=== PATIENT | female | born 1955 | race Caucasian/White ===

== ENCOUNTER → 2018-12-01 | Outpatient (CLI) | payer OTHER ==
[~2018-12-01] MED LIST: AMLODIPINE BESY10 MG PO; ASPIRIN; AVAPRO300 MG PO; COZAAR 50 MG TA50 M1; CRESTOR10 MG PO; DYAZIDE; EFFIENT10 MG PO; GLYBURID-METFO1 EAC3 PO; JANUVIA100 MG PO; LOPRESSOR; PRILOSEC40 MG PO; SIMVASTATIN; TRAMADOL PO; TRIAMTERENE W/1 EACH PO; ZOCOR80 MG PO
== END ==
LOC: HYPER 07:00
DX: I89.0 Lymphedema, not elsewhere classified (principal); I25.10 Atherosclerotic heart disease of native coronary artery without angina pectoris; E11.22 Type 2 diabetes mellitus with diabetic chronic kidney disease; I12.9 Hypertensive chronic kidney disease with stage 1 through stage 4 chronic kidney disease, or unspecified chronic kidney disease; N18.9 Chronic kidney disease, unspecified; I87.2 Venous insufficiency (chronic) (peripheral); E78.00 Pure hypercholesterolemia, unspecified; E66.01 Morbid (severe) obesity due to excess calories; R60.1 Generalized edema; R06.09 Other forms of dyspnea; F41.9 Anxiety disorder, unspecified; Z95.1 Presence of aortocoronary bypass graft; Z68.43 Body mass index [BMI] 50.0-59.9, adult

== ENCOUNTER → 2019-05-18 | Outpatient (CLI) | payer OTHER | LOC: HYPER 06:57 | DX: I89.0 Lymphedema, not elsewhere classified (principal); I87.2 Venous insufficiency (chronic) (peripheral); I12.9 Hypertensive chronic kidney disease with stage 1 through stage 4 chronic kidney disease, or unspecified chronic kidney disease; N18.9 Chronic kidney disease, unspecified; R60.1 Generalized edema; E78.00 Pure hypercholesterolemia, unspecified; I25.10 Atherosclerotic heart disease of native coronary artery without angina pectoris; E66.9 Obesity, unspecified; R06.09 Other forms of dyspnea; F41.9 Anxiety disorder, unspecified; Z68.43 Body mass index [BMI] 50.0-59.9, adult; Z95.1 Presence of aortocoronary bypass graft ==

== ENCOUNTER → 2019-07-13 | Outpatient (CLI) | payer OTHER | LOC: HYPER | DX: I89.0 Lymphedema, not elsewhere classified (principal); E11.22 Type 2 diabetes mellitus with diabetic chronic kidney disease; I12.9 Hypertensive chronic kidney disease with stage 1 through stage 4 chronic kidney disease, or unspecified chronic kidney disease; N18.9 Chronic kidney disease, unspecified; I87.2 Venous insufficiency (chronic) (peripheral); I25.10 Atherosclerotic heart disease of native coronary artery without angina pectoris; R60.1 Generalized edema; E78.00 Pure hypercholesterolemia, unspecified; E66.01 Morbid (severe) obesity due to excess calories; R06.09 Other forms of dyspnea; F41.9 Anxiety disorder, unspecified; Z68.43 Body mass index [BMI] 50.0-59.9, adult; Z95.1 Presence of aortocoronary bypass graft ==

== ENCOUNTER 2019-11-19 16:51 | Inpatient (IN) | payer OTHER ==
[~2019-11-19] VITALS: Ht 172.7 cm; Wt 164.2 kg
[2019-11-19 16:59] VITALS: BP 150/66
[2019-11-19 18:19] LABS: ABSOLUTE NEUTROPHILS 6.5 thou/uL (1.4-8.2); BASOPHILS 0.6 % (0.0-2.0); EOSINOPHILS 1.8 % (0.0-3.0); HEMATOCRIT 34.3 % (37.0-47.0); HEMOGLOBIN 11.3 gm/dL (12.0-15.0); MCH 31.7 pg (26.0-34.0); MCV 96.1 fL (80.0-100.0); MONOCYTES 9.4 % (1.0-8.0); PLATELET COUNT 180 thou/uL (150-400); POLYS 72.2 % (36.0-66.0); RBC 3.57 mil/uL (4.20-5.00); RDW 13.6 % (10.5-14.5)
[2019-11-19 18:24] LABS: ANION GAP 9 mmol/L (7-16); BUN 34 mg/dL (7-18); CALCIUM 9.9 mg/dL (8.5-10.1); CHLORIDE 99 mmol/L (98-107); CO2 28 mmol/L (21-32); CREATININE 1.8 mg/dL (0.6-1.0); GLUCOSE 127 mg/dL (74-106); POTASSIUM 3.8 mmol/L (3.5-5.1); SODIUM 136 mmol/L (136-145)
[2019-11-19 18:37] LABS: ALBUMIN 2.7 g/dL (3.4-5.0); DIRECT BILIRUBIN < 0.1 mg/dL (<0.1-0.2); SGOT 30 U/L (15-37); SGPT 25 U/L (30-65); TOTAL BILIRUBIN 0.4 mg/dL (<0.1-1.0); TOTAL PROTEIN 7.3 g/dL (6.4-8.2)
[2019-11-19 20:47] VITALS: BP 113/53
[2019-11-19 21:13] VITALS: BP 137/49
[2019-11-19 21:48] VITALS: BP 151/54
[2019-11-19] MEDS ORDERED: NEURONTIN300 MG PO (23:12)
[2019-11-19] MEDS ORDERED: CARVEDILOL12.5 MG PO (23:13)
[2019-11-20] MEDS ORDERED: DEMADEX20 MG PO (00:08)
[2019-11-20] MEDS ORDERED: OMEPRAZOLE 20 M20 M1 PO (00:08)
[2019-11-20] MEDS ORDERED: KLOR-CON 10 ER10 MEQ PO (00:09)
[2019-11-20] MEDS ORDERED: ROSUVASTATIN CA10 MG PO (00:09)
[2019-11-20] MEDS ORDERED: TELMISARTAN80 MG PO (00:10)
--- NOTE | 2019-11-20 04:41 | NUR ---
RECEIVED REPORT FROM ONEYDA ED RN.PATIENT ARRIVED TO ROOM 464 AROUND 2134.PATIENT A/O X 4.UP INDEPENDENTLY.MILD RIGHT LEG PAIN NOTED.ORDER TO CONSULT DR MARION.WILL CONTINUE POC.
[2019-11-20 04:54] LABS: HEMATOCRIT 32.6 % (37.0-47.0); HEMOGLOBIN 10.7 gm/dL (12.0-15.0); MCH 31.7 pg (26.0-34.0); MCHC 32.7 g/dL (28.0-37.0); MCV 96.9 fL (80.0-100.0); RBC 3.37 mil/uL (4.20-5.00); RDW 13.5 % (10.5-14.5); WBC 8.7 thou/uL (4.0-11.0)
[2019-11-20 05:09] LABS: CREATININE 1.5 mg/dL (0.6-1.0); POTASSIUM 3.9 mmol/L (3.5-5.1)
[2019-11-20 05:15] LABS: CHOLESTEROL 213 mg/dL (<200); HDL CHOLESTEROL 34 mg/dL (>40); LDL CHOLESTEROL 156 mg/dL (<100); TC:HDL 6.3 Ratio (Not establshd); TRIGLYCERIDE 119 mg/dL (<150); VLDL 24 mg/dL (<40)
[2019-11-20 05:22] LABS: SERUM ASSESSMENT Clear
[2019-11-20 08:24] VITALS: BP 106/42
--- NOTE | 2019-11-20 13:24 | NUR ---
Assumed pt care this am, pt is up ad matilde. Bilateral edema in the legs with cellulitis. Pt had stated she had tramadol in her bag and had taken it this am prior to shift change and the night nurse was informed. Informed pt of the protocol and counted the medications and bagged infront of the pt, bad sent down to pharmacy and tag is in the chart.
[2019-11-20 16:39] VITALS: BP 131/45
[2019-11-20 20:00] VITALS: BP 131/37
[2019-11-21 00:10] LABS: GLYCOHEMOGLOBIN (HGB A1C) 6.9 % (4.8-5.6)
--- NOTE | 2019-11-21 02:44 | NUR ---
PT CARE ASSUMED WITH PT IN CHAIR WATCHING TV.PT IS A/O X4.PT IS UP AD CONI.PT IS ACCUCHECK ACHS WITH LOW DOSE INSULIN.IV ACCESS CHANGED FROM LFA TO RFA DUE TO INFILTRATION.PT IS ON VANCOMYCIN AND TROUGH DUE AT 0930.WILL CONTINUE TO MONITOR PER POC
[2019-11-21 07:32] VITALS: BP 146/43
--- NOTE | 2019-11-21 12:08 | NUR ---
Assumed pt care this am, VS stable. Blood sugar checks done and insulin given as per emar. Pain managed with medications, pt is up ad matilde, at the bedside. OT lymphedema nurse on the case, IV abx on going, diet and medications are tolerated well. Pt is up ad matilde and independent of adl's. POC followed, no signs or verbalizations of distress noted.
--- NOTE | 2019-11-21 15:20 | NUR ---
PT ADMITTED RELATED TO RIGHT LEG CELLULITIS. CM REVIEWED CHART AND SPOKE WITH CARE TEAM. CM MET WITH PT AT BEDSIDE THIS DAY. PT IS A&O X4. CM ROLE INTRODCUED. PT INDICATED THAT SHE LIVES IN A HOUSE WITH HER SPOUSE WITH 13 STEP TO ENTER WITH 1 SIDE HAND RAIL. PT INDICATED SHE HAS A CANE FOR USE AT HOME. PT INDICATED SHE DOES LYMPHEDEMA TREATMENT AT HOME. SHE INDICATED IT TAKES HER LOTS OF TIME AND EFFORT THAT HE SPOUSE ASSISTS SOME BUT THAT SHE DOESN'T DO TREATMENT REGULARLY SHE SHOULD. PT INDICATED SHE PLANS TO RETURN HOME ONCE MEDICALLY STABLE. PT GETTING IV ABX AND WC AT THIS TIME. CM TO FOLLOW INDICATED WITH DC PLANNING.
[2019-11-21 19:22] VITALS: BP 143/47
--- NOTE | 2019-11-22 03:53 | NUR ---
ASSUMED CARE OF PT AT 1900HRS. PT IS AOX4 AND LETS NEEDS BE KNOWN. PT IS UP AD CONI. PT LOST IV ACCESS AND IV COULD NOT BE STARTED AFTER MULTIPLE ATTEMPTS. COLOR COATER AND ORCHARD MANAGER AWARE. PLEASE PAGE IV TEAM IN THE AM. IV VANC HELD UNTIL ACCESS AVAILABLE. PT DENIED PAIN, NAUSEA OR SOA. PT WAS ABLE TO GET COMFORTABLE AND SLEEP PART OF THE SHIFT. VSS AND NO S/S OF ACUTE DISTRESS. WILL CONTINUE TO MONITOR.
--- NOTE | 2019-11-22 12:21 | NUR ---
Nutrition: Pt seen for BMI 55.1 (obese class III). Admit w/ right leg cellulitis, foot wound, lymphedema. Hx DM, CAD, HTN, neuropathy, lap band surgery 2006. Meds: IV Abx, torsemide, IVFs. Labs: BG 127-201, chol 213, HDL 34, LDL 156. Current weight is 362#, reported UBW of 370#. Pt is a chronic dieter and has had 10-20# weight fluctuations most of her adult life. States she is an "expert" when it comes to knowing about her DM, but has barriers to behavior change. Provided nutrition counseling/education - see RD education note. Current intake 80-90%. Stated she has been trying to consume only 50% of meals for weight loss. Encouraged Pt to consume meals for adequate nutrition and protein foods for wound healing. Reports good appetite now that she has started feeling better. Consider low nutritional risk.
--- NOTE | 2019-11-22 12:26 | NUR ---
PT A&OX4, VSS, PAIN IN BILAT LE. BILAT LYMPHEDEMA WRAPS DONE BY WOUND NURSE. NEW IV PLACED IN LEFT FOREARM. VANCOMYCIN RESUMED. PATIENT UP AD CONI WITH STEADY GAIT. NO SIGNS OF DISTRESS, WILL CONTINUE TO MONITOR.
[2019-11-22 16:30] VITALS: BP 126/43; BP 141/47
--- NOTE | 2019-11-22 16:38 | NUR ---
CARE TEAM INDICATED THAT THEY ANTICPATE PT DISCHARGING HOME TOMORROW WITH OP LYMPHEDEMA SERVICES. CM TO FOLLOW INDICATED WITH DC PLANNING.
[2019-11-22 19:15] VITALS: BP 134/48
[2019-11-23 07:25] VITALS: BP 147/61
--- NOTE | 2019-11-23 08:39 | NUR ---
progress pt a/o x4 denies pain accucheks and antibiotics continue lymphedema wraps in place pt feels as if they have worked extremely well. up ad matilde ambulating independently hoping to go home today.
[2019-11-23] MEDS ORDERED: BACTRIM DS TAB1 EAC1 PO (09:33)
[2019-11-23 12:10] VITALS: BP 143/54
[2019-11-23 12:30] VITALS: BP 143/54
--- NOTE | 2019-11-23 13:16 | NUR ---
PT A&OX4, VSS, DENIES PAIN. PATIENT TO DISCHARGE HOME WITH HOME HEALTH. NO SIGNS OF DISTRESS. LYPHEDEMA WRAPS C/D/I. WILL CONTINUE TO MONITOR.
--- NOTE | 2019-11-23 14:03 | NUR ---
DISCHARGE PLANNING. DISCHARGE PLAN IS TO HOME WITH HOME HEALTH SERVICES. PATIENT IN NEED OF LYMPHEDEMA THERAPY, NURSING, PT AND OT. [facility], THEY DO NOT PROVIDE LYMPHEDEMA THERAPY. CALL PLACED TO [facility], TO INQUIRE TO LYMPHEDEMA THERAPY. [facility] DOES PROVIDE THE SERVICE. [facility] CONTRACTS WITH [employer] MEDICARE PPO NOT HMO. [facility] TO RUN PATIENT BENEFITS TO SEE IF THEY CONTRACT WITH HER PROVIDER. CALL PLACED TO [facility]. [facility] STATES [facility] DOES PROVIDE LYMPHEDEMA SERVICES AND WILL RUN PROVIDER TO SEE IF THEY CONTRACT WITH PATIENTS PROVIDER. AWAITING RESPONSE FROM [facility] AND [facility] AT THIS TIME.
--- NOTE | 2019-11-23 15:40 | NUR ---
CARE TEAM INDICATED THAT PT IS MEDICALLY STABLE TO DC HOME THIS DAY WITH HH PT AND OT AND LYMPHEDEMA. REFERRAL WAS SENT TO [facility] AND THEY ARE ABLE TO ACCEPT PT FOR SERVICES WITH A SOC WEDNESDAY. NO OTHER CM INTERVENTION INDICATED. CASE CLOSED.
--- NOTE | 2019-11-27 07:44 | HC ---
[facility] [place] [address] CONSULTATION Name: PEDRO LUIS CHOWDHURY Room #: 464-P [facility] IN M.R.#: [id number] Admission: 11/19/19 Attend Phys: Tamie Elizabeth Discharge: 11/23/19 Date of : 55 Report #: [id number] THIS REPORT FOR: cc: Sanna Arriola MD,Chano Minor MD, MD ~ CC: Tamie Arriola DATE OF SERVICE: 11/20/2019 CHIEF COMPLAINT: Lymphedema and cellulitis. HISTORY OF PRESENT ILLNESS: This is a 64-year-old female patient with a history of longstanding lower extremity edema and morbid obesity. She is admitted to the hospital with cellulitis with an increasing swelling, drainage and odor from her right lower extremity. She has had swollen legs and lymphedema for several years as well as ongoing issues with morbid obesity. She has not undergone any specific lymphedema therapy in the past. She has been seen occasionally in the wound clinic here, but not with regular followup. PAST MEDICAL HISTORY: Positive for diabetes, hypertension, panic attacks. She has had history of morbid obesity and having undergone lap band surgery in 2006, previous cholecystectomy, coronary artery bypass graft surgery in 2002. SOCIAL HISTORY: Negative for alcohol or tobacco use. FAMILY HISTORY: Noncontributory. MEDICATIONS: Include aspirin, tramadol, triamterene/hydrochlorothiazide, amlodipine, Neurontin, carvedilol, metoprolol, glyburide, rosuvastatin, and losartan. ALLERGIES: No known drug allergies. REVIEW OF SYSTEMS: CONSTITUTIONAL: The patient denies fever, chills or weight loss. NEUROLOGICAL: The patient denies focal weakness, numbness or tingling. EYES: The patient denies visual changes, redness, or drainage. ENT: The patient denies earache, nasal drainage, sore throat. CARDIOVASCULAR: The patient denies chest pain, palpitations or diaphoresis. PULMONARY: The patient denies cough or shortness of breath. GASTROINTESTINAL: The patient denies nausea, vomiting, diarrhea or abdominal pain. ORTHOPEDIC: The patient complains of pain, swelling, drainage from both lower extremities, but increased pain and drainage and redness on the right side. [address] [address] CONSULTATION Name: PEDRO LUIS CHOWDHURY Room #: 464-P [facility] IN M.R.#: [id number] Admission: 11/19/19 Attend Phys: Tamie Elizabeth Discharge: 11/23/19 Date of : 55 Report #: [id number] GENITOURINARY: The patient denies frequency or urgency of urination. Denies dysuria. Other systems in a 14-point review of systems are negative. PHYSICAL EXAMINATION: VITAL SIGNS: At this time include temperature 37.1, pulse 72, respiratory rate of 16, blood pressure of 106/42. GENERAL: This is a chronically ill-appearing female patient who appears to be in mild distress. HEENT: Head normocephalic. Nose and throat are clear. NECK: Supple. LUNGS: Clear. HEART: Regular rhythm. ABDOMEN: Morbidly obese, nontender. EXTREMITIES: Lower extremities demonstrate chronic changes consistent with lymphedema of both lower legs. She has scaling, hyperkeratosis, drainage and cracking involving the lower legs and feet. There is significant redness, tenderness and warmth to the right side suggestive of cellulitis. CLINICAL IMPRESSION: 1. Cellulitis, right lower extremity. 2. Lymphedema, bilateral lower extremities, chronic. 3. Type 2 diabetes mellitus. 4. Hypertension. 5. Hyperlipidemia. 6. Super morbid obesity. RECOMMENDATIONS: At this point in time, we will recommend intravenous antibiotics. I am reluctant to initiate compression until we have the infection under better control. We will recommend AmLactin lotion to the scaly skin on both legs and then, we will also consult the lymphedema therapist to initiate compression and lymphedema massage after 48 hours of intravenous antibiotic therapy. She will need ongoing nutritional evaluation. I have discussed with her the need for weight loss to help manage the comorbidities. She states that she is seeing someone regarding a possible gastric sleeve procedure. I have written initial wound care orders and I appreciate being asked to see her in consultation. We will continue to follow her in the hospital. <ELECTRONICALLY SIGNED> By: Chano Truong MD 11/27/19 0744 1855 0028 Chano Truong MD /nt
== END 2019-11-23 18:14 | disposition home health service (06) | DRG 603 ==
LOC: ER 16:51 → 4W 20:32 → EROBS 20:32 → 4W 21:12 → ENTRNSPT 11-23 16:37 → 4W 11-23 18:14
PROVIDERS: Emergency Medicine; Nurse Practitioner Family; ADMIT Hospitalist
DX: L03.115 Cellulitis of right lower limb (principal); N17.9 Acute kidney failure, unspecified; Z68.43 Body mass index [BMI] 50.0-59.9, adult; I25.10 Atherosclerotic heart disease of native coronary artery without angina pectoris; E66.01 Morbid (severe) obesity due to excess calories; I89.0 Lymphedema, not elsewhere classified; I12.9 Hypertensive chronic kidney disease with stage 1 through stage 4 chronic kidney disease, or unspecified chronic kidney disease; E78.5 Hyperlipidemia, unspecified; E11.22 Type 2 diabetes mellitus with diabetic chronic kidney disease; E11.42 Type 2 diabetes mellitus with diabetic polyneuropathy; I87.2 Venous insufficiency (chronic) (peripheral); N18.9 Chronic kidney disease, unspecified; Z90.49 Acquired absence of other specified parts of digestive tract; Z79.899 Other long term (current) drug therapy; Z79.82 Long term (current) use of aspirin
CPT/HCPCS: 10040; 10045

== ENCOUNTER 2019-11-24 10:07 | Emergency (ER) | payer OTHER ==
[~2019-11-24] VITALS: Ht 172.7 cm; Wt 165.6 kg
[2019-11-24 10:07] VITALS: BP 139/70
[~2019-11-24 10:07] MED LIST changes: +BACTRIM DS TAB1 EAC1 PO; +CARVEDILOL12.5 MG PO; +DEMADEX20 MG PO; +KLOR-CON 10 ER10 MEQ PO; +NEURONTIN300 MG PO; +OMEPRAZOLE 20 M20 M1 PO; +ROSUVASTATIN CA10 MG PO; +TELMISARTAN80 MG PO
== END 2019-11-24 11:01 | disposition left against medical advice (07) ==
LOC: ER 10:07
DX: M79.604 Pain in right leg (principal); Z53.21 Procedure and treatment not carried out due to patient leaving prior to being seen by health care provider

== ENCOUNTER → 2020-05-20 | Outpatient (CLI) | payer OTHER ==
[~2020-05-20] MED LIST changes: +CHOLECALCIFEROL1 GM PO; +COZAAR 25 MG TA25 M2 PO; +GRAPE SEED50 MG PO; +MAGNESIUM250 M1 PO; +MEGARED OMEGA-1 EAC2 PO; +NOVOLOG100 UNIT/1 SUBQ; +TELMISARTAN20 MG PO; +TRESIBA100 UNIT/1 SUBQ
== END ==
LOC: SJCVC 13:20
PROVIDERS: ATTEND Internal Medicine Cardiovascular Disease
DX: I44.0 Atrioventricular block, first degree (principal); I25.810 Atherosclerosis of coronary artery bypass graft(s) without angina pectoris; I10 Essential (primary) hypertension; E78.00 Pure hypercholesterolemia, unspecified; R60.9 Edema, unspecified; E66.01 Morbid (severe) obesity due to excess calories; Z95.1 Presence of aortocoronary bypass graft; Z79.82 Long term (current) use of aspirin; Z79.899 Other long term (current) drug therapy; Z82.49 Family history of ischemic heart disease and other diseases of the circulatory system

== ENCOUNTER 2020-05-22 07:54 | Observation (INO) | payer OTHER ==
[~2020-05-22] VITALS: Ht 172.7 cm; Wt 161.0 kg
[2020-05-22] VITALS (10 sets, daily range): BP systolic 131–167; BP diastolic 40–81
[~2020-05-22 07:54] MED LIST changes: -GRAPE SEED50 MG PO; -MAGNESIUM250 M1 PO; -TELMISARTAN20 MG PO
[2020-05-22] MEDS ORDERED: TELMISARTAN20 MG PO (09:17)
[2020-05-22] MEDS ORDERED: MAGNESIUM250 M1 PO (09:18)
[2020-05-22] MEDS ORDERED: GRAPE SEED50 MG PO (09:19)
--- NOTE | 2020-05-22 13:04 | CATHLAB ---
[facility] [address] [place] [address] INVASIVE PROCEDURE REPORT Name: PEDRO LUIS CHOWDHURY Room #: REG BRODERICK SanchezMihaelaMary.#: [id number] Admission: 05/22/20 Attend Phys: Ashok Hamlin MD Discharge: Date of : 55 Report #: [id number] THIS REPORT FOR: cc: Sanna Arriola MD, Michelle R. MD Park, Jin S. MD ~ APPROVED REPORT Study performed: 05/22/2020 10:05:30 Patient Details Patient Status: Out-Patient Room #: The patient is a 65 year-old female Event Personnel Ashok Hamlin Customer Service Advisor, Keith Jaimes RN RN, Ashley Cifuentes RTMinh Santos Roberta Monitor Procedures Performed Art Access - R femoral artery* Left Heart Cath w/or w/o Coronaries [id number] [facility] w/wo Plasty Single CIRC 940801 66628 Initial Mod Sed Same Phys/QHP Gr5y 689609 61262 Mod Sed Same Phys/QHP Ea 305413 Hemostasis w/ Mynx Indication Dyspnea, Unstable angina , Chest pain Risk Factors Obesity, Hypercholesterolemia, Coronary Artery DiseaseHypertension, Diabetes Previous Procedures/Diagnoses Previous CABGPrevious PCI Procedure Narrative The Right Groin^ was infiltrated with 1% Lidocaine subcutaneous anesthesia. A PINNACLE 4FR Sheath #[id number] sheath was inserted into the RFA 4F^. Coronary angiography was performed using coronary diagnostic catheters. The right coronary system was accessed and visualized with a JR4 catheter. The left coronary system was accessed and visualized with a JL4 catheter. The left ventricle was accessed and visualized with a ANGLE PIG catheter. There was no hematoma. [facility] [address] [place] [address] INVASIVE PROCEDURE REPORT Name: PEDRO LUIS CHOWDHURY Room #: REG [facility]#: [id number] Admission: 05/22/20 Attend Phys: Ashok Hamlin MD Discharge: Date of : 55 Report #: [id number] Intraoperative Conscious Sedation Sedation start time: 1044 Case end Time: 1150 Fentanyl 100 mcg Versed 4 mg Fluoro Time: 14.40 minutes Dose: DAP 74061.00 cGycm2 3205 mGy Contrast Type and Amount: Visipaque 205 ml Coronary Angiography The patient's coronary anatomy is right dominant. Diagnostic Cath LAD The LAD is totally occluded at the ostium. There is a patent BENOIT graft with an end-to-side anastomosis to the mid LAD. After the anastomosis the LAD is patent and wraps around the apex. Diagonal 1 There is severe proximal occlusion in the sequential SVG to diagonal artery 1, obtuse marginal artery 1 and obtuse marginal artery 2. OM1 As above Right Coronary The RCA is a dominant vessel with a patent stent in the midsegment. There is a severe occlusion in the distal segment, 70%. R PDA This is a patent vessel, with no flow-limiting lesions. RPLV This is a patent vessel, with no flow-limiting lesions. Left Ventriculography Left Ventriculography was not performed. An LVEDP was measured and there is no gradient across the outflow tract. Hemodynamics The aortic pressure is 126/51 mmHg with a mean of 82 mmHg. The left ventricular pressure is 134/-2 mmHg with a mean of mmHg. The left ventricular end diastolic pressure is 16 mmHg. PCI Technique Lesion Percutaneous coronary intervention was performed on the Proximal segment of the sequential SVG to D1/OM1/OM 2.. The lesion stenosis prior to intervention was 95% with CHARLA 3 flow. A LAUNCHER 6FR AL75 #[id number] Guide Catheter was used to engage the SVG TO CIRC ostium. A Luge Wire .014 x 182CM #[id number] Interventional Guidewire was used to cross the lesion. BALLOON DILATION [facility] [address] [place] [address] INVASIVE PROCEDURE REPORT Name: PEDRO LUIS CHOWDHURY Room #: REG [facility]#: [id number] Admission: 05/22/20 Attend Phys: Ashko Hamlin MD Discharge: Date of : 55 Report #: [id number] Balloon catheter Euphora RX 2.5 x 15 #[id number] was inserted and inflated up to 14.00atm for 18seconds. Additional Inflation: 15.00atm for 17seconds. Additional Inflation: 14.00atm for 16seconds. STENT DEPLOYMENT A stent XIENCE PALOMO RX 3.5 X 18 #[id number] was inserted and inflated up to 20.00atm for 34seconds. POST STENT DEPLOYMENT BALLOON DILATION A Balloon catheter TREK NC RX 3.75 X 15 #[id number] was inserted and inflated up to 20.00atm for 21seconds. Additional Inflation: 20.00atm for 12seconds. Final angiography reveals 0 % stenosis with CHARLA 3 flow. Conclusion 1. Successful insertion of a drug-eluting stent into the proximal segment of the sequential SVG to D1/OM1/OM 2. 2. There is a patent BENOIT graft to the LAD. 3. There is a patent stent in the midsegment of the RCA. There is severe occlusion in the distal RCA segment. Consider staged PCI. 4. Recommend dual antiplatelet therapy and aggressive risk factor management. <ELECTRONICALLY SIGNED> By: Ashok Hamlin MD 05/22/20 1304 1304 1304 Ashok Hamlin MD /INF
--- NOTE | 2020-05-22 13:52 | NUR ---
PT ARRIVED TO UNIT AT APPROX 1330 BY DOUBLE CORNER CUTTER STAFF. PT ALERT AND ORIENTED.VSS. DENIES PAIN. R GROIN CDI, NO HEMATOMA. PT COMPLIANT WITH BEDREST. ADMISSION COMPLETE. TELE STRIP PRINTED AND DOCUMENTED. PT DENIES NEEDS AT THIS TIME. CONTINUING TO MONITOR.
--- NOTE | 2020-05-22 14:37 | EKG ---
[facility] [place] [address] ELECTROCARDIOGRAM REPORT Name: PEDRO LUIS CHOWDHURY Room #: 207-P ADM IN M.R.#: [id number] Admission: 05/22/20 Attend Phys: Ashok Hamlin MD Discharge: Date of : 55 Report #: [id number] THIS REPORT FOR: cc: Sanna Arriola MD, Michelle R. MD Lammoglia, Francisco J. MD ~ THIS REPORT FOR: //name// [facility] Test Date: 2020-05-22 Test Time: 12:41:33 Pat Name: PEDRO LUIS CHOWDHURY Department: Room: [facility] Gender: F Restaurant Hostess: Daniel BAKER : 1955 Requested By: Ashok Hamlin Order Number: [id number] MD: Carlos Calvin Measurements Intervals [place] Rate: 53 P: 84 ME: 277 QRS: 83 QRSD: 116 T: 1 QT: 464 QTc: 436 Interpretive Statements Sinus rhythm Prolonged ME interval Early transition Nonspecific intraventricular conduction delay Compared to ECG 05/22/2020 08:56:52 No significant changes Electronically Signed On 05-22-2020 14:37:19 CDT by Carlos Calvin [email or web address] <ELECTRONICALLY SIGNED> By: Carlos Calvin MD 05/22/20 1437 1241 1241 Carlos Calvin MD /EPI
--- NOTE | 2020-05-22 14:39 | EKG ---
[facility] [place] [address] ELECTROCARDIOGRAM REPORT Name: PEDRO LUIS CHOWDHURY Room #: 207-P ADM IN M.R.#: [id number] Admission: 05/22/20 Attend Phys: Ashok Hamlin MD Discharge: Date of : 55 Report #: [id number] THIS REPORT FOR: cc: Sanna Arriola MD, Michelle R. MD Lammoglia, Francisco J. MD ~ THIS REPORT FOR: //name// [facility] Test Date: 2020-05-22 Test Time: 08:56:52 Pat Name: PEDRO LUIS CHOWDHURY Department: Room: [facility] Gender: F Cook House Supervisor: CLARICE : 1955 Requested By: Ashok Hamlin Order Number: [id number] MD: Carlos Calvin Measurements Intervals [place] Rate: 64 P: 74 SC: 258 QRS: 73 QRSD: 114 T: 2 QT: 419 QTc: 433 Interpretive Statements Sinus rhythm Prolonged SC interval intraventricular conduction delay Nonspecific ST-T wave change Compared to ECG 01/31/2012 15:26:37 First degree AV block now present Electronically Signed On 05-22-2020 14:38:56 CDT by Carlos Calvin [email or web address] <ELECTRONICALLY SIGNED> By: Carlos Calvin MD 05/22/20 1438 0856 0856 Carlos Calvin MD /EPI
[2020-05-23] VITALS: BP 134/44
[2020-05-23 03:50] VITALS: BP 145/57; BP 45/57
--- NOTE | 2020-05-23 03:59 | NUR ---
assumed pt care at the change of shift, pt is awake, alert and orientedx4, sr/sb on the monitor, assessments as charted, right groin cdi, no hematoma, vss, up to the bathroom standby assist with a cane, denies concerns at this time, will continue to monitor
[2020-05-23 04:00] VITALS: BP 145/57
[2020-05-23 05:24] LABS: HEMATOCRIT 35.4 % (37.0-47.0); HEMOGLOBIN 11.8 gm/dL (12.0-15.0); MCH 32.1 pg (26.0-34.0); MCHC 33.4 g/dL (28.0-37.0); RBC 3.69 mil/uL (4.20-5.00); RDW 13.3 % (10.5-14.5); WBC 4.9 thou/uL (4.0-11.0)
[2020-05-23 05:55] LABS: ALBUMIN 2.6 g/dL (3.4-5.0); CREATININE 1.1 mg/dL (0.6-1.0); POTASSIUM 4.3 mmol/L (3.5-5.1); TOTAL BILIRUBIN 0.2 mg/dL (0.2-1.0)
[2020-05-23] MEDS ORDERED: EFFIENT10 MG PO (07:32)
[2020-05-23 08:23] VITALS: BP 133/55
[2020-05-23 10:11] VITALS: BP 133/55
--- NOTE | 2020-05-23 10:14 | EKG ---
[facility] [place] [address] [place] [address] ELECTROCARDIOGRAM REPORT Name: PEDRO LUIS CHOWDHURY Room #: 207-[facility] M.R.#: [id number] Admission: 05/22/20 Attend Phys: Ashok Hamlin MD Discharge: Date of : 55 Report #: [id number] THIS REPORT FOR: cc: Sanna Arriola MD, Michelle R. MD Lammoglia, Francisco J. MD ~ THIS REPORT FOR: //name// [facility] Test Date: 2020-05-23 Test Time: 07:44:44 Pat Name: PEDRO LUIS CHOWDHURY Department: Room: [facility] Gender: F House Nurse: CLARICE : 1955 Requested By: Ashok Hamlin Order Number: [id number] MD: Carlos Calvin Measurements Intervals [place] Rate: 83 P: -2 OR: 234 QRS: 85 QRSD: 110 T: 1 QT: 393 QTc: 462 Interpretive Statements Sinus rhythm Prolonged OR interval Possible left atrial enlargement Borderline right axis deviation Abnormal R-wave progression, late transition Baseline wander in lead(s) V6 Compared to ECG 05/22/2020 12:41:33 No significant change Electronically Signed On 05-23-2020 10:13:58 CDT by Carlos Calvin [email or web address] <ELECTRONICALLY SIGNED> By: Carlos Calvin MD 05/23/20 1013 0744 Carlos Calvin MD /EPI
--- NOTE | 2020-05-23 10:34 | NUR ---
ASSUMED CARE PT SHIFT CHANGE. ASSESSMENT CHARTED.MEDS GIVEN PER NOV. PT ALERT AND ORIENTED.VSS. DENIES PAIN. R GROIN SITE REMAINS CDI. NO HEMATOMA. PT UP WITH CANE, TOLERATING WELL. DC ORDERS ACKNOWLEDGED AND IMPLEMENTED. DC PAPERWORK DISCUSSED WITH PT, COMMUNICATES UNDERSTANDING. IV REMOVED. TELE REMOVED. PT LEFT UNIT WITH ALL BELONGINGS.
== END 2020-05-23 10:35 | disposition home or self-care (01) ==
LOC: CATH 07:54 → 2N 14:12 → CATH 15:48 → 2N 05-23 10:35
PROVIDERS: ADMIT Internal Medicine Cardiovascular Disease; ATTEND Internal Medicine Cardiovascular Disease
DX: I25.110 Atherosclerotic heart disease of native coronary artery with unstable angina pectoris (principal); I10 Essential (primary) hypertension; E78.5 Hyperlipidemia, unspecified; E11.9 Type 2 diabetes mellitus without complications; E66.9 Obesity, unspecified; E78.00 Pure hypercholesterolemia, unspecified; R06.00 Dyspnea, unspecified; Z68.43 Body mass index [BMI] 50.0-59.9, adult
CPT/HCPCS: 10797

== ENCOUNTER → 2020-06-06 | Outpatient (CLI) | payer OTHER ==
[~2020-06-06] MED LIST changes: +GRAPE SEED50 MG PO; +MAGNESIUM250 M1 PO; +TELMISARTAN20 MG PO
== END ==
LOC: SJCVC 11:08
PROVIDERS: ATTEND Internal Medicine Cardiovascular Disease
DX: I25.810 Atherosclerosis of coronary artery bypass graft(s) without angina pectoris (principal); I10 Essential (primary) hypertension; E78.00 Pure hypercholesterolemia, unspecified; R60.9 Edema, unspecified; E11.9 Type 2 diabetes mellitus without complications; Z82.49 Family history of ischemic heart disease and other diseases of the circulatory system; Z95.1 Presence of aortocoronary bypass graft; Z79.82 Long term (current) use of aspirin; Z79.899 Other long term (current) drug therapy; Z79.4 Long term (current) use of insulin

== ENCOUNTER 2020-07-11 07:55 | Observation (INO) | payer OTHER ==
[2020-07-11] VITALS (10 sets, daily range): BP systolic 129–163; BP diastolic 53–88
[~2020-07-11] VITALS: Ht 172.7 cm; Wt 158.8 kg
--- NOTE | ~2020-07-11 | H ---
[facility] [place] [address] HISTORY AND PHYSICAL Name: PEDRO LUIS CHOWDHURY Room #: REG [facility]ODER[facility] [place].#: [id number] Admission: 07/11/20 Attend Phys: Ashok Hamlin MD Discharge: Date of : 55 Report #: [id number] THIS REPORT FOR: cc: Sanna Arriola MD,Ashok Guidry MD, MD ~ CC: Ashok Arriola DATE OF SERVICE: 07/11/2020 INDICATION: Coronary artery disease. HISTORY OF PRESENT ILLNESS: This is a pleasant 65-year-old female with a history of CABG, PCI, obesity, hypertension, diabetes mellitus and lymphedema, presenting for stage angioplasty procedure of the RCA. She has had multiple PCI procedures of the RCA in 2009 and 2010. In 04/2020, she presented with chest pain and shortness of breath, found to have a severe occlusion in the sequential SVG to D1, OM1 and OM2. The BENOIT graft to the LAD is patent. PCI was performed with placement of a drug-eluting stent. However, she has severe disease in the distal RCA. The stents in the proximal RCA are patent. Clinically, she develops dyspnea and fatigue with minimal exertion. She uses a cane for assistance with ambulation. There is no history of fever, chills or nausea. PAST MEDICAL AND SURGICAL HISTORY: As above, CABG in 2001, multiple PCI procedures, obesity, diabetes mellitus, hypertension, lymphedema, hypercholesterolemia, renal insufficiency. MEDICATIONS: Include amlodipine 5 mg daily, aspirin once a day, Effient 10 mg daily, Coreg twice a day, insulin, losartan 100 mg daily, Crestor 10 mg, and diuretic. ALLERGIES: None. SOCIAL HISTORY: Denies tobacco use. FAMILY HISTORY: Negative for premature CAD. REVIEW OF SYSTEMS: A full 10-point review of systems performed. Only the pertinent positives and negatives are described in the HPI. PHYSICAL EXAMINATION: VITAL SIGNS: Stable. GENERAL APPEARANCE: This is an overweight female, in no acute distress. HEENT: Normocephalic, atraumatic. Oral mucosa moist. NECK: Supple. [facility] [address] [place] [address] HISTORY AND PHYSICAL Name: PEDRO LUIS CHOWDHURY Room #: REG [facility]#: [id number] Admission: 07/11/20 Attend Phys: Ashok Hamlin MD Discharge: Date of : 55 Report #: [id number] LUNGS: Clear to auscultation. CARDIAC: Regular rate and rhythm, S1, S2 positive. ABDOMEN: Soft, protuberant, nontender. EXTREMITIES: Lymphedema with boots on. ASSESSMENT AND PLAN: 1. Coronary artery disease/coronary artery bypass graft/percutaneous coronary intervention, now presenting for a stage PCI involving the RCA. The patient with clinical symptoms of dyspnea on exertion. We will proceed with PCI. The risks, benefits and alternatives of cardiac catheterization with PCI has been discussed. The patient voices understanding and wishes to proceed. 2. Diabetes mellitus, continue on insulin and check fingersticks. 3. Hypertension, continue medications. 4. Hypercholesterolemia, continue Crestor. 5. Renal insufficiency, would hydrate before and after the procedure. By: [id number] Ashok Hamlin MD /nt
[2020-07-11 09:57] LABS: HEMATOCRIT 37.9 % (37.0-47.0); HEMOGLOBIN 12.7 gm/dL (12.0-15.0); MCH 31.9 pg (26.0-34.0); MCHC 33.6 g/dL (28.0-37.0); MCV 95.1 fL (80.0-100.0); RBC 3.99 mil/uL (4.20-5.00); RDW 13.4 % (10.5-14.5)
[2020-07-11 10:03] LABS: CALCIUM 10.1 mg/dL (8.5-10.1); CREATININE 1.5 mg/dL (0.6-1.0); POTASSIUM 4.1 mmol/L (3.5-5.1)
[2020-07-11 10:08] LABS: CHOLESTEROL 262 mg/dL (<200); HDL CHOLESTEROL 52 mg/dL (>40); LDL CHOLESTEROL 189 mg/dL (<100); TRIGLYCERIDE 107 mg/dL (<150); VLDL 21 mg/dL (<40)
--- NOTE | 2020-07-11 11:20 | EKG ---
[facility] [address] [facility] [place] [address] ELECTROCARDIOGRAM REPORT Name: PEDRO LUIS CHOWDHURY Room #: REG [facility].#: [id number] Admission: 07/11/20 Attend Phys: Ashok Hamlin MD Discharge: Date of : 55 Report #: [id number] THIS REPORT FOR: cc: Sanna Arriola MD, Michelle R. MD Santiago, Patrick MD [facility] ~ THIS REPORT FOR: //name// [facility] Test Date: 2020-07-11 Test Time: 09:06:04 Pat Name: PEDRO LUIS CHOWDHURY Department: Room: Gender: Product Responsibility Liaison[facility] 1955 Requested By: Ashok Hamlin Order Number: [id number] MD: Spencer Michel Measurements Intervals [place] Rate: 77 P: 59 NV: 243 QRS: 85 QRSD: 116 T: 2 QT: 369 QTc: 418 Interpretive Statements Sinus rhythm Prolonged NV interval Probable left atrial enlargement Nonspecific intraventricular conduction delay Compared to ECG 05/23/2020 07:44:44 Intraventricular conduction delay now present Electronically Signed On 07-11-2020 11:20:23 CDT by Spencer Michel [email or web address] <ELECTRONICALLY SIGNED> By: Spencer Michel MD, FACC 07/11/20 1120 5 Spencer Michel MD, [facility] /EPI
--- NOTE | 2020-07-11 15:36 | EKG ---
[facility] [place] [address] ELECTROCARDIOGRAM REPORT Name: PEDRO LUIS CHOWDHURY Room #: 211-[facility] M.R.#: [id number] Admission: 07/11/20 Attend Phys: Ashok Hamlin MD Discharge: Date of : 55 Report #: [id number] THIS REPORT FOR: cc: Sanna Arriola MD, Michelle R. MD Santiago, Patrick MD [facility] ~ THIS REPORT FOR: //name// [facility] Test Date: 2020-07-11 Test Time: 15:26:19 Pat Name: PEDRO LUIS CHOWDHURY Department: Room: 211 Gender: F Data Management: BPIERCE2 : 1955 Requested By: Ashok Hamlin Order Number: [id number] MD: Spencer Michel Measurements Intervals [place] Rate: 54 P: 88 OK: 255 QRS: 89 QRSD: 112 T: 54 QT: 444 QTc: 421 Interpretive Statements Sinus rhythm Prolonged [place] interval Borderline intraventricular conduction delay Compared to ECG 07/11/2020 09:06:04 No significant changes Electronically Signed On 07-11-2020 15:36:32 CDT by Spencer Michel [email or web address] <ELECTRONICALLY SIGNED> By: Spencer Michel MD, FACC 07/11/20 1536 1526 1526 Spencer Michel MD, FAC /EPI
--- NOTE | 2020-07-11 16:47 | CATHLAB ---
[facility] [address] [place] [address] INVASIVE PROCEDURE REPORT Name: PEDRO LUIS CHOWDHURY Room #: 211-[facility] Dima Berry#: [id number] Admission: 07/11/20 Attend Phys: Ashok Hamlin MD Discharge: Date of : 55 Report #: [id number] THIS REPORT FOR: cc: Sanna Arriola MD, Michelle R. MD Park, Jin S. 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 Presented with unstable angina in May 2020, undergoing placement of a drug-eluting stent in the proximal segment of the sequential SVG to D1/OM1/OM 2. Risk Factors Obesity, Peripheral Vascular Disease, HypercholesterolemiaPhysical Activity, Coronary Artery DiseaseHypertension, Diabetes Previous Procedures/Diagnoses Previous CABGPrevious PCI Procedure Narrative The Right Groin^ was infiltrated with 1% Lidocaine subcutaneous anesthesia. A PINNACLE 6FR Sheath #[id number] sheath was inserted into the RFA^. Coronary angiography was performed using coronary diagnostic catheters. The right coronary system was accessed and visualized with a VISTA 6FR JR 4 #[id number] catheter. Pre-demployment femoral angiogram was performed . Closure device was deployed with a [facility] [address] [place] [address] INVASIVE PROCEDURE REPORT Name: PEDRO LUIS CHOWDHURY Room #: 211-P [facility]#: [id number] Admission: 07/11/20 Attend Phys: Ashok Hamlin MD Discharge: Date of : 55 Report #: [id number] 6 Fr MYNXGRIP 6/7F #[id number]. The patient tolerated the procedure well and there were no complications associated with the procedure. There was no hematoma. Intraoperative Conscious Sedation Sedation start time: 1209 Case end Time: 1434 Fentanyl 150 mcg Versed 2.0 mg Fluoro Time: 57.20 minutes Dose: DAP 15140.00 cGycm2 27988 mGy Contrast Type and Amount: Visipaque 330 ml Hemodynamics The aortic pressure is 144/65 mmHg with a mean of 98 mmHg. PCI Technique Lesion Percutaneous coronary intervention was performed on the distal right coronary artery. The lesion stenosis prior to intervention was 95% with CHARLA 3 flow. A VISTA 6FR JR 4 #[id number] Guide Catheter was used to engage the ostium. A Luge Wire .014 x 182CM #[id number] Interventional Guidewire was used to cross the lesion. BALLOON DILATION A Balloon catheter Sprinter OTW 2.25 x 12 #[id number] was inserted and inflated up to 12.00atm for 29seconds. Additional Inflation: 16.00atm for 26seconds. Additional Inflation: 16.00atm for 46seconds. STENT DEPLOYMENT A drug-eluting stent RESOLUTE YINA RX 2.25 X 15 #[id number] was inserted and inflated up to 16.00atm for 18seconds. A second drug-eluding stent was placed in the distal RCA;2.74h15cj Resolute Onxy, inflated to 16 BIBIANA @22 Secs POST STENT DEPLOYMENT BALLOON DILATION A Balloon catheter Euphora NC RX 2.5 x 12 #[id number] was inserted and inflated up to 18.00atm for 17seconds. Additional Inflation: 16.00atm for 8seconds. Final angiography reveals 0 % stenosis with CHARLA 3 flow. PCI Technique Lesion 2 Percutaneous coronary intervention was performed on the mid right coronary artery. The lesion stenosis prior to intervention was 75% with CHARLA 3 flow. A VISTA 6FR JR 4 #[id number] Guide Catheter was used to engage the ostium. A Luge Wire .014 x 182CM #[id number] Interventional [address] [address] INVASIVE PROCEDURE REPORT Name: PEDRO LUIS CHOWDHURY Room #: 211-P [facility] IN M.R.#: [id number] Admission: 07/11/20 Attend Phys: Ashok Hamlin MD Discharge: Date of : 55 Report #: [id number] Guidewire was used to cross the lesion. Balloon Dilation A Balloon catheter Sprinter OTW 2.0 x 10 #[id number] was inserted and inflated up to 12atm for 16seconds. Additional Inflation: 12atm for 37seconds. Additional Inflation: 12atm for 9seconds. Stent Deployment A drug-eluting stent RESOLUTE YINA RX 2.5 X 12 #[id number] was inserted and inflated up to 18atm for 19seconds. Post Stent Deployment Balloon Dilation A Balloon catheter Euphora NC RX 2.5 x 12 #[id number] was inserted and inflated up to 18atm for 10seconds. Additional Inflation: 18atm for 14seconds. Final angiography reveals 0 % stenosis with CHARLA 3 flow. PCI Technique Lesion 3 Percutaneous coronary intervention was performed on the proximal right coronary artery. The lesion stenosis prior to intervention was 80% with CHARLA 3 flow. A VISTA 6FR JR 4 #[id number] Guide Catheter was used to engage the ostium. A Luge Wire .014 x 182CM #[id number] Interventional Guidewire was used to cross the lesion. Balloon Dilation A Balloon catheter TREK RX 2.25 X 12 #[id number] was inserted and inflated up to 18atm for 16seconds. Additional Inflation: 16atm for 29seconds. Stent Deployment A drug-eluting stent RESOLUTE YINA RX 3.0 X 15 #[id number] was inserted and inflated up to 16atm for 20seconds. Post Stent Deployment Balloon Dilation A Balloon catheter TREK NC RX 3.25 X 12 #[id number] was inserted and inflated up to 18atm for 16seconds. Additional Inflation: 18atm for 25seconds. Final angiography reveals 0 % stenosis with CHARLA 3 flow. Conclusion 1. Successful insertion of drug-eluting stents into the proximal, mid and distal segments of the RCA. 2. Normal LV systolic function. [facility] [address] [place] [address] INVASIVE PROCEDURE REPORT Name: PEDRO LUIS CHOWDHURY Room #: 211-P [facility] [place] .R.#: [id number] Admission: 07/11/20 Attend Phys: Ashok Hamlin MD Discharge: Date of : 55 Report #: [id number] 3. Recommend dual antiplatelet therapy and aggressive risk factor management. <ELECTRONICALLY SIGNED> By: Ashok Hamlin MD 07/11/201645 45 45 Ashok aHmlin MD /INF
--- NOTE | 2020-07-11 18:44 | NUR ---
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 SOFT TO TOUCH ALL THE WAY AROUND SITE. PEDAL PULSES ARE 1+ BILTATERALLY ON LOWER EXTREMETIES. NO MOTTLING OBSERVED. SHE IS MORBIDLY OBESE SO SOME OF HER LEGS ARE HARD TO ASSESS FOR EDEMA VERSUS OBESITY. DENIES ANY CP, NO SOB, ON ROOM AIR. NSR, NO ECTOPY NOTED.
--- NOTE | 2020-07-11 18:56 | NUR ---
POST CATH TO RCA -4 STENTS TODAY. DOING WELL, ATE ALL HER DINNER. VOIDED 2L OUT ON BEDPAN. DENIES ANY PAIN NOW, HEADACHE HAS RESOLVED. GROIN SITE IS C,D,I NO HEMATOMA OBSERVED PEDAL PULSES ARE 1+ LOWER EXTREMETIES. NO MOTTLING OBSERVED.
[2020-07-12 00:45] VITALS: BP 134/53
[2020-07-12 04:45] VITALS: BP 163/94
[2020-07-12 05:16] LABS: HEMATOCRIT 38.1 % (37.0-47.0); HEMOGLOBIN 12.3 gm/dL (12.0-15.0); MCH 31.4 pg (26.0-34.0); MCHC 32.2 g/dL (28.0-37.0); MCV 97.4 fL (80.0-100.0); RBC 3.91 mil/uL (4.20-5.00); RDW 13.4 % (10.5-14.5); WBC 4.3 thou/uL (4.0-11.0)
[2020-07-12 05:36] LABS: ALBUMIN 2.9 g/dL (3.4-5.0); CALCIUM 9.5 mg/dL (8.5-10.1); CREATININE 1.3 mg/dL (0.6-1.0); POTASSIUM 4.1 mmol/L (3.5-5.1); TOTAL BILIRUBIN 0.2 mg/dL (0.2-1.0); TOTAL PROTEIN 6.3 g/dL (6.4-8.2)
--- NOTE | 2020-07-12 06:48 | NUR ---
PATIENT IS PROGRESSING IN CARE PLAN. VITAL SIGNS STABLE WITH PATIENT HAVING NO COMPLAINTS OF PAIN OR NAUSEA. FULLY ORIENTED, PATIENT IS ABLE TO PARTICIPATE IN CARE AND CALL APPROPRIATELY FOR NEEDS. CATH SITE C/D/I WITH NO EVIDENCE OF HEMATOMA. UP MULTIPLE TIMES WITH ASSISTANCE INCIDENT FREE. PATIENT IS ANXIOUS FOR PROBABLE DISCHARGE TODAY. CONTINUE PLAN OF CARE.
--- NOTE | 2020-07-12 07:45 | EKG ---
[facility] Eusebio [place] [facility] [place] [address] ELECTROCARDIOGRAM REPORT Name: PEDRO LUIS CHOWDHURY Room #: 211-[facility] M.R.#: [id number] Admission: 07/11/20 Attend Phys: Ashok Hamlin MD Discharge: Date of : 55 Report #: [id number] THIS REPORT FOR: cc: Sanna Arriola MD, Michelle R. 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 : 1955 Requested By: Ashok Hamlin Order Number: [id number] MD: Spencer Michel Measurements Intervals [place] Rate: 66 P: 54 MO: 247 QRS: 70 QRSD: 107 T: 22 QT: 398 QTc: 417 Interpretive Statements Sinus rhythm Prolonged MO interval Low voltage, precordial leads Abnormal R-wave progression, late transition Compared to ECG 07/11/2020 15:26:19 Low QRS voltage now present Electronically Signed On 07-12-2020 7:45:33 CDT by Spencer Michel [email or web address] <ELECTRONICALLY SIGNED> By: Spencer Michel MD, FACC 07/12/2045 2 2 Spencer Michel MD, FAC /EPI
[2020-07-12] MEDS ORDERED: LIVALO4 MG PO (08:51)
[2020-07-12 10:15] VITALS: BP 144/67
--- NOTE | 2020-07-12 11:07 | NUR ---
ASSESSMENT CHARTED. PT ALERT AND ORIENTED. VSS. REPORT PRN PAIN MED FOR [place] WITH PARTIAL RELIEF. RIGHT GROIN INCISION C/D/I. NO HEMATOMA NOTED. ORDERS GIVEN TO DISCHARGE PT TO HOME. DISCHARGE INSTRUCTIONS GIVEN TO PT. PT VERBERLISED UNDERSTANDING.
== END 2020-07-12 11:09 | disposition home or self-care (01) ==
LOC: CATH 07:55 → 2N 15:08
PROVIDERS: ADMIT Internal Medicine Cardiovascular Disease; ATTEND Internal Medicine Cardiovascular Disease
DX: I25.110 Atherosclerotic heart disease of native coronary artery with unstable angina pectoris (principal); I10 Essential (primary) hypertension; E11.9 Type 2 diabetes mellitus without complications; E78.00 Pure hypercholesterolemia, unspecified; N28.9 Disorder of kidney and ureter, unspecified; Z79.82 Long term (current) use of aspirin; Z79.899 Other long term (current) drug therapy

== ENCOUNTER → 2020-08-02 | Outpatient (CLI) | payer OTHER ==
[~2020-08-02] MED LIST changes: +LIVALO4 MG PO
== END ==
LOC: SJCVC 14:08
PROVIDERS: ATTEND Internal Medicine Cardiovascular Disease
DX: R94.31 Abnormal electrocardiogram [ECG] [EKG] (principal); I44.0 Atrioventricular block, first degree; I25.10 Atherosclerotic heart disease of native coronary artery without angina pectoris; I89.0 Lymphedema, not elsewhere classified; I10 Essential (primary) hypertension; E78.00 Pure hypercholesterolemia, unspecified; Z95.1 Presence of aortocoronary bypass graft; Z79.899 Other long term (current) drug therapy

== ENCOUNTER → 2021-05-02 | Outpatient (CLI) | payer OTHER | LOC: SJCVC 10:35 | PROVIDERS: ATTEND Internal Medicine Cardiovascular Disease | DX: I44.0 Atrioventricular block, first degree (principal); I25.10 Atherosclerotic heart disease of native coronary artery without angina pectoris; E11.9 Type 2 diabetes mellitus without complications; I10 Essential (primary) hypertension; E78.00 Pure hypercholesterolemia, unspecified; I89.0 Lymphedema, not elsewhere classified; Z79.4 Long term (current) use of insulin; Z95.1 Presence of aortocoronary bypass graft; I25.2 Old myocardial infarction; Z95.5 Presence of coronary angioplasty implant and graft; Z88.8 Allergy status to other drugs, medicaments and biological substances; Z79.82 Long term (current) use of aspirin; Z79.899 Other long term (current) drug therapy; E66.01 Morbid (severe) obesity due to excess calories; Z82.49 Family history of ischemic heart disease and other diseases of the circulatory system ==

== ENCOUNTER → 2021-11-04 | Outpatient (CLI) | payer OTHER | LOC: SJCVCIMAG 08:27 | PROVIDERS: ATTEND Internal Medicine Cardiovascular Disease | DX: E78.00 Pure hypercholesterolemia, unspecified (principal); I25.10 Atherosclerotic heart disease of native coronary artery without angina pectoris; R00.2 Palpitations; E11.9 Type 2 diabetes mellitus without complications; E78.5 Hyperlipidemia, unspecified; I10 Essential (primary) hypertension; R60.9 Edema, unspecified; Z88.8 Allergy status to other drugs, medicaments and biological substances; Z79.82 Long term (current) use of aspirin; Z79.899 Other long term (current) drug therapy; Z82.49 Family history of ischemic heart disease and other diseases of the circulatory system ==